=== PATIENT | female | born 1960 | race African-American/Black ===

== ENCOUNTER 2017-11-09 12:33 | Emergency (ER) | payer OTHER | END 2017-11-09 15:40 | disposition home or self-care (01) | LOC: FTE 12:33 | DX: J02.9 Acute pharyngitis, unspecified (principal); I10 Essential (primary) hypertension; E11.9 Type 2 diabetes mellitus without complications; Z79.84 Long term (current) use of oral hypoglycemic drugs | CPT/HCPCS: 99283 ==

== ENCOUNTER 2018-03-20 11:09 | Emergency (ER) | payer OTHER ==
[2018-03-20] MEDS: FLUORESCEIN STRIP LEFT EYE (12:18)
[2018-03-20] MEDS: TETRACAINE 0.5% 4 ML OPH BOTH EYES (12:18)
== END 2018-03-20 12:41 | disposition home or self-care (01) ==
LOC: E/R 11:09
DX: H57.8 Other specified disorders of eye and adnexa (principal); I10 Essential (primary) hypertension; E11.9 Type 2 diabetes mellitus without complications; Z79.84 Long term (current) use of oral hypoglycemic drugs
CPT/HCPCS: 99283

== ENCOUNTER 2018-04-27 13:29 | Emergency (ER) | payer SELFPAY, OTHER | END 2018-04-27 20:46 | disposition left against medical advice (07) | LOC: E/R 13:29 | DX: Z53.21 Procedure and treatment not carried out due to patient leaving prior to being seen by health care provider (principal) | CPT/HCPCS: 99281 ==

== ENCOUNTER 2018-08-21 09:49 | Emergency (ER) | payer OTHER | END 2018-08-21 11:56 | disposition home or self-care (01) | LOC: FTE 09:49 | DX: M25.561 Pain in right knee (principal); I10 Essential (primary) hypertension; E11.9 Type 2 diabetes mellitus without complications; M25.562 Pain in left knee; M79.671 Pain in right foot; M79.672 Pain in left foot | CPT/HCPCS: 73562; 73562-50; 99284-25 ==

== ENCOUNTER 2018-10-12 15:04 | Emergency (ER) | payer SELFPAY, OTHER | END 2018-10-12 17:21 | disposition left against medical advice (07) | LOC: FTE 15:04 | DX: Z53.21 Procedure and treatment not carried out due to patient leaving prior to being seen by health care provider (principal) ==

== ENCOUNTER 2018-10-19 13:18 | Emergency (ER) | payer MEDICARE, OTHER ==
[2018-10-19] MEDS: IBUPROFEN 600 MG TAB PO (15:19)
== END 2018-10-19 16:08 | disposition home or self-care (01) ==
LOC: FTE 13:18
DX: M79.674 Pain in right toe(s) (principal); E11.9 Type 2 diabetes mellitus without complications; I10 Essential (primary) hypertension
CPT/HCPCS: 73630; 73660; 99283-25

== ENCOUNTER 2019-06-16 12:57 | Emergency (ER) | payer BC, OTHER | END 2019-06-16 15:00 | disposition home or self-care (01) | LOC: FTE 12:57 | DX: M79.674 Pain in right toe(s) (principal); I10 Essential (primary) hypertension; E11.9 Type 2 diabetes mellitus without complications; Z79.84 Long term (current) use of oral hypoglycemic drugs | CPT/HCPCS: 99283 ==